=== PATIENT | female | born 1975 | race Hispanic/Latino ===

== ENCOUNTER 2017-10-27 09:33 | Day surgery (SDC) | payer OTHER ==
--- NOTE | 2017-10-25 15:04 | History and Physical Report ---
History of Present Illness Date of examination: 10/24/17 Date of admission: 10/27/17 Chief complaint: here for btl History of present illness: History of Present Illness: Pt presents for pre op visit.......Kristie Pt here for pre op for BTL. I d/w felshi clips vs salpingectomy and she desires removal of the tubes. All risk/benefits/alternatives were d/w pt and questions were addressed and answered. Pt given able time to aks questions all of which were addressed and answered. Consents were signed and given to pt to provide on day of sx when seen in pre op. Vital Signs: Patient Profile: 42 Years Old Female LMP: 10/11/2017 Height: 66 inches (167.64 cm) Weight: 209 pounds BMI: 33.73 BP sittin / 78 (left arm) Menstrual History: LMP (date): 10/11/2017 Current Method of Contraception: None Past History : 4 Term Births: 3 Living Children: 3 Para: 3 Spont. Ab: 1 # 3 Delivery date: 08/28/2007 Weeks Gestation: 40 Delivery type: Sex: Male weight: 8' Comments: post hypetension. CRUSHER MACHINE OPERATOR History Uterine Surgery (not C/S): negative Operations: positive: endometrial ablation Hospitalizations: negative Anesthesia Complications: negative Abnormal PAP: positive Uterine Anomaly: negative MARI Exposure: negative Infertility: negative Infection History HIV Risk Eval: no Personal hx. of genital herpes: no Partner hx. of genital herpes: no Hx of STD: None Active Medications (reviewed today): LO LOESTRIN 1/10 (NORETHIN WALTER-ETH ESTRAD-FE TABS) () 1 po qd CLONAZEPAM 0.5 MG ORAL TABLET (CLONAZEPAM) take 1/4 tablet as needed for Menier' s symptoms CLARITIN 10 MG ORAL CAPSULE (LORATADINE) Current Allergies (reviewed today): CIPRO (CIPROFLOXACIN HCL TABS) (Critical) * -CODEINE (Critical) Past Medical History: Reviewed history from 12/21/2016 and no changes required: menier's disease. no meds on a reg basis. based on foods cafiene etc. palpatations Past Surgical History: Reviewed history from 01/10/2017 and no changes required: positive: endometrial ablation Family History Summary: Reviewed history Last on 05/18/2017 and no changes required:10/25/2017 Daughter (rehana.) - Has Family History of Diabetes - mat grandparents - Entered On: 12/09/2015 General Comments - FH: pat father and his family with Melanoma. Social History: Smoking History: Patient has never smoked. Patient is Previous Tobacco Use: Signed On - 05/18/2017 Smoked Tobacco Use: Never smoker Smokeless Tobacco Use: Never Passive smoke exposure: no Drug use: no HIV high-risk behavior: no Previous Alcohol Use: Signed On - 05/18/2017 Alcohol use: no Exercise: yes Times per week: 3 times per wk Type of Exercise: gym Seatbelt use: 100 % Review of Systems General Denies fever, chills, sweats, anorexia, fatigue, weakness, malaise, weight loss and sleep disorder. Denies nausea, vomiting, headache, swelling of legs, abdominal pain, vaginal discharge, vaginal bleeding and contractions. Denies vaginal discharge, incontinence, dysuria, hematuria, urinary frequency, amenorrhea, menorrhagia, abnormal vaginal bleeding, pelvic pain, genital sores, decreased libido, painful periods, painful sex, urinary urgency, hot flashes, vaginal dryness, vaginal itching and vaginal odor. CV Denies chest pains, palpitations, syncope, dyspnea on exertion, orthopnea, PND and peripheral edema. Resp Denies cough, dyspnea at rest, excessive sputum, hemoptysis, wheezing and pleurisy. GI Denies nausea, vomiting, diarrhea, constipation, change in bowel habits, abdominal pain, melena, hematochezia, jaundice, gas/bloating, indigestion/ heartburn, dysphagia and odynophagia. Endo Denies cold intolerance, heat intolerance, polydipsia, polyphagia, polyuria and unusual weight change. Breast Denies left breast lump, right breast lump, nipple discharge, bloody discharge from nipple, breast pain, abnormal mammogram and breast enlargement. MS Denies back pain, joint pain, joint swelling, muscle cramps, muscle weakness, stiffness, arthritis, sciatica, restless legs, leg pain at night and leg pain with exertion. Derm Denies rash, itching, dryness and suspicious lesions. Neuro Denies paralysis, paresthesias, headache, seizures, tremors, vertigo, transient blindness, frequent falls, frequent headaches and difficulty walking. Psych Denies depression, anxiety, irritability and mood swings. Eyes Denies blurring, diplopia, irritation, discharge, vision loss, eye pain and photophobia. ENT Denies earache, ear discharge, tinnitus, decreased hearing, nasal congestion, nosebleeds, sore throat and hoarseness. Allergy Denies urticaria, allergic rash, hay fever and recurrent infections. Heme Denies abnormal bruising, bleeding and enlarged lymph nodes. [Labs In-House] Physical Exam Appearance: well developed, well nourished, no acute distress Other Exams Breast exam: no masses or nipple discharge Lungs: no rales, rhonchi, or wheezes Heart: S1, S2, no murmur, rub, or gallop Abdomen: soft, non-tender, no masses, bowel sounds normal Extremities: normal alignment, no joint enlargement, crepitus, masses or tenderness; normal tone and strength Genitourinary Exam Comments: deferred until EUA Past History Past Medical History: other (see hpi) Past Surgical History: other (see hpi) CRUSHER MACHINE OPERATOR History: other (see hpi) Family/Genetic History: other (see hpi) Social history: no significant social history, single Review of Systems All systems: negative - Physical Exam Cardiovascular: Normal S1, Normal S2 Lungs: Positive: Clear to auscultation, Normal air movement Abdomen: Positive: normal appearance, soft. Negative: distention, tenderness, guarding Genitourinary (Female): Positive: other (deferred until EUA) Results All other labs normal. Assessment and Plan - Patient Problems (1) Encounter for sterilization Status: Acute Plan to address problem: -admit -plan for laproscopic salpingection b/L -all risk, benefits, and alternatives d/w pt and all questions were addressed and answered.
[~2017-10-27 09:33] MED LIST: ANCEF/STERILE WATER 2 GM/20 ML 2 GM/20 ML SYRINGE IV NR
[2017-10-27] MEDS ORDERED: ZEMURON IV ONE (10:40)
[2017-10-27] MEDS ORDERED: DIPRIVAN 10 MG/ML IV ONE (10:40)
[2017-10-27] MEDS ORDERED: XYLOCAINE MPF 2% ONE (10:40)
[2017-10-27] MEDS ORDERED: SUBLIMAZE ONE (10:40)
[2017-10-27] MEDS ORDERED: TRANSDERM-SCOP TD ONE (10:52)
[2017-10-27] MEDS ORDERED: PEPCID IV ONE (10:53)
[2017-10-27] MEDS ORDERED: VERSED IV NR (11:00)
[2017-10-27] MEDS ORDERED: LACTATED RINGERS 1,000 ML IV SCH (11:00)
[2017-10-27] MEDS ORDERED: MARCAINE 0.5% 30 ML INFILTRATI ONE (11:30)
[2017-10-27] MEDS ORDERED: MARCAINE 0.5% INFILTRATI ONE ×2 (12:12)
[2017-10-27] MEDS ORDERED: NACL 0.9% IR ONE (12:12)
--- NOTE | 2017-10-27 12:12 | Anesthesia Day of Surgery ---
Anesthesia Day of Surgery - Day of Surgery Patient Examined: Yes Patient H&P Reviewed: Yes Patient is NPO: Yes
[2017-10-27] MEDS ORDERED: DECADRON ONE (12:13)
[2017-10-27] MEDS ORDERED: TORADOL ONE (12:13)
[2017-10-27] MEDS ORDERED: ZOFRAN ONE (12:13)
[2017-10-27] MEDS ORDERED: BLOXIVERZ ONE (12:15)
[2017-10-27] MEDS ORDERED: ROBINUL ONE (12:15)
--- NOTE | 2017-10-27 12:17 | Anesthesia Consultation ---
Anesthesia Consult and Med Hx Date of service: 10/27/17 - Airway Anesthetic Teeth Evaluation: Good ROM Head & Neck: Adequate Mental/Hyoid Distance: Adequate Mallampati Class: Class I Intubation Access Assessment: Good - Pulmonary Exam CTA: Yes - Cardiac Exam Cardiac Exam: RRR - Pre-Operative Health Status ASA Pre-Surgery Classification: ASA2 Proposed Anesthetic Plan: General - Pulmonary Hx Smoking: Yes (Former) Hx Asthma: Yes ("Seasonal" ) - Central Nervous System Hx Psychiatric Problems: Yes - Other Systems Hx Cancer: No
[2017-10-27] MEDS ORDERED: DILAUDID ONE (12:30)
--- NOTE | 2017-10-27 12:45 | Short Stay Summary ---
Short Stay Documentation Date of service: 10/27/17 - History H&P: dictated Social history: no significant social history, single - Allergies and Medications Current Medications: Allergies ciprofloxacin [From Cipro] Allergy (Verified 10/26/17 11:11) Hallucinations codeine Allergy (Verified 10/26/17 11:11) Hallucinations Home Medications Medication Instructions Recorded Confirmed Last Taken Type Loratadine [Claritin] 10 mg PO DAILY 10/26/17 10/27/17 10/26/17 History Magnesium 200 mg PO DAILY 10/26/17 10/27/17 10/25/17 History Multivitamin [Multiple Vitamins] 1 each PO DAILY 10/26/17 10/27/17 1 Week Ago History ~10/20/17 clonazePAM 0.5 mg PO DAILY 10/26/17 10/27/17 10/25/17 History Active Medications Cefazolin Sodium (Ancef/Sterile Water 2 Gm/20 Ml) 2 gm in 20 mls @ 80 mls/hr IV PREOP NR; Protocol Stop: 10/27/17 23:59 Lactated Ringer's (Lactated Ringers) 1,000 mls @ 100 mls/hr IV DIRECT LUDMILA Last Admin: 10/27/17 10:45 Dose: 100 mls/hr Midazolam HCl (Versed) 2 mg IV PREOP NR Stop: 10/27/17 23:59 Last Admin: 10/27/17 11:04 Dose: 2 mg - Brief post op/procedure progress note Date of procedure: 10/27/17 Pre-op diagnosis: desires permanent sterilization Post-op diagnosis: same Procedure: Laparoscopic bilateral salpingectomy Anesthesia: GETA Findings: See operative report Surgeon: RICKEY BUNCH Estimated blood loss: minimal Pathology: list Specimen disposition: to lab Condition: stable - Hospital course Hospital course: Patient admitted for above-stated procedure. Procedure was done without difficulty. Patient was monitored in the PACU elevator discharged home once discharge criteria has been met. - Disposition Condition at discharge: Good Disposition: DC-01 TO HOME OR SELFCARE - Discharge Diagnoses (1) Encounter for sterilization Status: Acute Short Stay Discharge Plan Activity: no restrictions Weight Bearing Status: Weight Bear as Tolerated Diet: regular Wound: open to air Additional Instructions: REMOVE SCOPOLAMINE PATCH FROM BEHIND RIGHT EAR. FOLD PATCH IN HALF STICKING IT TOGETHER BEFORE THROWING IT AWAY. WASH HANDS AFTER REMOVING SCOPOLAMINE PATCH. Follow up with: IKE MURRAY MD [Primary Care Provider] - 7 Days Prescriptions: Ibuprofen 800 mg PO Q6HR #30 tablet
--- NOTE | 2017-10-27 12:46 | Operative Report ---
Operative Report Operative Report: Date of procedure: 10/27/2017 Pre-operative diagnosis: Desires permanent sterilization Post-operative diagnosis: Same Procedure name(s): Laparoscopic bilateral salpingectomy Surgeon: Dr. Corcoran Life Skills Educator: MALIA Anesthesia: Gen. endotracheal anesthesia EBL: Minimal Urine output: 100 mL of clear urine out via straight catheterization prior to the onset of procedure Fluids: 1 L Findings: Grossly normal fallopian tubes and ovaries bilaterally Normal uterus Normal cervix Normal vagina Indications: Patient desired permanent sterilization. All risks benefits and alternatives as well as methods of sterilization were discussed with the patient. Patient desired bilateral salpingectomy. Consents were signed and placed on the chart at the patient was given ample time to ask and addressed questions. Procedure: Patient was taken to the operating room and which she was placed under general endotracheal anesthesia. Patient was then prepped and draped in sterile fashion and placed in dorsal lithotomy position in Inocente stirrups. Attention was then turned to the vagina in which a Humi uterine manipulator was placed. Patient underwent straight catheterization. Attention was then turned to the umbilicus and which an infraumbilical incision was made with the scalpel 5mm trocar was placed using direct visualization with the camera. Abdomen was then insufflated with gas. Under direct visualization 25 mm trochars were placed in the left lower quadrant and the suprapubic region of the abdomen. The left fallopian tube was grasped by the fimbriated edge. Cauterized and ligated. This process was continued until a portion of the fallopian tube had been amputated. Portion of fallopian tube was handed off to pathology. This procedure was repeated on the right side. After salpingectomy was completed all instruments were removed from the abdomen under direct visualization. All gas was also released from the abdomen.. The skin was approximated with 4-0 Monocryl in a subcuticular stitch. 0.5 Marcaine without epi was injected at all incisions for total of 10 mL of issues. The patient tolerated procedure well. Sponge, lap, and needle counts were all correct x3 the patient was taken to the recovery room awake and in stable condition.
[2017-10-27] MEDS ORDERED: DILAUDID IV PRN (13:12)
--- NOTE | 2017-10-27 13:31 | Post Anesthesia Evaluation ---
- Post Anesthesia Evaluation Patient Participated: Yes Airway Patent: Yes Stable Respiratory Function: Yes Nausea/Vomiting: No Temp > 96.8F: Yes Pain Manageable: Yes Adequeate Hydration: Yes Anesthesia Complications: No
[2017-10-27] MEDS ORDERED: PHENERGAN PO SCH (14:53)
[2017-10-27 15:35] VITALS: BP 115/70
== END 2017-10-27 15:25 | disposition home or self-care (01) ==
LOC: OR 09:33
PROVIDERS: ATTEND Obstetrics & Gynecology
DX: Z30.2 Encounter for sterilization (principal); J45.909 Unspecified asthma, uncomplicated; K21.9 Gastro-esophageal reflux disease without esophagitis; G43.909 Migraine, unspecified, not intractable, without status migrainosus; H81.09 Meniere's disease, unspecified ear; M19.90 Unspecified osteoarthritis, unspecified site; F41.9 Anxiety disorder, unspecified; Z98.890 Other specified postprocedural states; Z88.5 Allergy status to narcotic agent; Z88.1 Allergy status to other antibiotic agents; Z87.891 Personal history of nicotine dependence
CPT/HCPCS: 58700; 81025; 88302; J0690; J1100; J1170; J1885; J2250; J2405; J2704; J2710; J3010; J7120; Q0169